=== PATIENT | female | born 1960 | race Caucasian/White ===

== ENCOUNTER 2017-04-05 07:00 | Inpatient (IN) | payer OTHER ==
[~2017-04-05] VITALS: Ht 180.3 cm; Wt 59.0 kg
[~2017-04-05 07:00] MED LIST: ALPRAZOLAM0.5 MG PO
[2017-05-28] MEDS ORDERED: SYNTHROID150 MCG ORAL (14:01)
[2017-05-28] MEDS ORDERED: PAMELOR25 MG ORAL (14:03)
[2017-05-28] MEDS ORDERED: NORCO 10-325 T1 EACH ORAL (14:05)
[2017-05-28] MEDS ORDERED: TRANSDERM-SCOP1.5 MG TD (14:08)
[2017-05-28] MEDS ORDERED: CIPRO250 MG ORAL (14:45)
[2017-05-28] MEDS ORDERED: COMBIPATCH 0.01 EACH TD (14:48)
[2017-05-29] VITALS (16 sets, daily range): BP systolic 100–128; BP diastolic 41–89
[2017-05-29] MEDS ORDERED: Thrombin 5000 units TOPIC ONE (06:56)
[2017-05-29] MEDS ORDERED: Surgicel 4in x 8in TOPIC ONE (06:56)
[2017-05-29] MEDS ORDERED: Vancomycin 1gm inj IVPB ONE ×2 (06:57→07:38)
[2017-05-29] MEDS ORDERED: Bacitracin 50000 Units Vial ONE (06:57)
[2017-05-29] MEDS ORDERED: Sterile Water Irrig 1000ml IRRIG ONE (07:00)
[2017-05-29] MEDS ORDERED: Metoclopramide 10mg/2ml Inj ONE (07:00)
[2017-05-29] MEDS ORDERED: Propofol 1,000mg/ 100ml btl IV ONE (07:00)
[2017-05-29] MEDS ORDERED: fentaNYL 100 mcg/2 mL IV ONE (07:00)
[2017-05-29] MEDS ORDERED: Ketorolac 30mg Inj ONE (07:00)
[2017-05-29] MEDS ORDERED: Vancomycin 1 GM in D5W 275 ML IVPB ONE (07:00)
[2017-05-29] MEDS ORDERED: Morphine Sulfate 10mg/ml Inj ONE (07:00)
[2017-05-29] MEDS ORDERED: LR 1000ml ONE (07:00)
[2017-05-29] MEDS ORDERED: Midazolam 2mg/2ml Inj ONE (07:00)
[2017-05-29] MEDS ORDERED: NS Irrig 1000ml ONE (07:00)
[2017-05-29] MEDS ORDERED: Zemuron 50mg/5ml Inj IV ONE (07:00)
[2017-05-29] MEDS ORDERED: Sodium Chloride 10ml vial INJ ONE (07:00)
[2017-05-29] MEDS ORDERED: Glycopyrrolate 0.2mg/ml 1ml Vial ONE (07:00)
[2017-05-29] MEDS ORDERED: Succinylcholine 20mg/ml 10ml vial ONE (07:00)
--- NOTE | 2017-05-29 07:20 | Pre-Procedure Note/Attestation ---
Pre-Procedure Note/Attestation Complete Prior to Procedure Planned Procedure: not applicable Procedure Narrative: Arthroplasty C56 , Anterior cervical discectomy and fusion Cervical 67 Indications for Procedure Pre-Operative Diagnosis: C56, and C67 herniation Attestation I attest that I discussed the nature of the procedure; its benefits; risks and complications; and alternatives (and the risks and benefits of such alternatives ), prior to the procedure, with the patient (or the patient's legal agency service representative). I attest that, if there was a reasonable possibility of needing a blood transfusion, the patient (or the patient's legal agency service representative) was given the [facility] standardized written summary, pursuant to the [place] Blood Safety Act ([place] Health and Safety Code # 1645, as amended). I attest that I re-evaluated the patient just prior to the surgery and that there has been no change in the patient's H&P, except as documented below: JOSE ROBERTO RICO May 29, 2017 07:20
--- NOTE | 2017-05-29 07:23 | Brief Operative Note ---
Immediate Post Operative Note Operative Note Chief Complaint: neck pain and radiculopathy Pre-op Diagnosis: C56, and C67 herniation Procedure: Arthroplasty C56 , Anterior cervical discectomy and fusion Cervical 67 Post-op Diagnosis: same as pre-op Findings: consistent w/pre-op dx studies Surgeon: Eloina Nascar Racer: Manolo Anesthesia: general Specimen: none Complications: none Implant(s) used?: Yes - Prodisc 5, Nuvasive InterlJOSE ROBERTO Mcgarry May 29, 2017 07:23
[2017-05-29 07:44] LABS: APPEARANCE,URINE CLOUDY; BILIRUBIN, URINE NEGATIVE (NEGATIVE); GLUCOSE, URINE (UA) NEGATIVE (NEGATIVE); KETONES,URINE NEGATIVE (NEGATIVE); LEUKOCYTE ESTERASE ,URINE 1+ (NEGATIVE); NITRITE,URINE NEGATIVE (NEGATIVE); PH,URINE 5 (4.5-8.0); PROTEIN,URINE NEGATIVE (NEGATIVE); UROBILINOGEN,URINE NORMAL MG/DL (0.0-1.0)
[2017-05-29 07:49] LABS: COLOR,URINE YELLOW
[2017-05-29] MEDS ORDERED: LR 1000ml 1,000 ML IVLG SCH (08:04)
--- NOTE | 2017-05-29 08:08 | Anethesia Preoperative Eval ---
Anesthesia Pre-op PMH/ROS General Date of Evaluation: May 29, 2017 Time of Evaluation: 06:55 Anesthesiologist: MK ASA Score: ASA 2 Mallampati Score Class I : Soft palate, uvula, fauces, pillars visible Class II: Soft palate, uvula, fauces visible Class III: Soft palate, base of uvula visible Class IV: Only hard plate visible Mallampati Classification: Class I Surgeon: JACKY Diagnosis: CERVICAL RADICULOPATHY Surgical Procedure: C5-6,7 Anesthesia History: none, PONV Family History: no anesthesia problems Allergies: Coded Allergies: PENICILLINS (Verified Allergy, Intermediate, rash, 05/28/17) Medications: see eMAR Anesthesia Pre-op Phys. Exam Physician Exam Last Vital Signs Date Time Temp Pulse Resp B/P (MAP) Pulse Ox O2 Delivery O2 Flow Rate FiO2 05/29/17 06:17 98.6 68 20 100/66 97 Room Air 98.6 Constitutional: NAD Neurologic: CN 2-12 intact Cardiovascular: RRR Respiratory: CTA Gastrointestinal: S/NT/ND Airway Exam Mallampati Score: Class II MO: full ROM: full Teeth: intact Anesthesia Pre-op A/P Labs Urine Test Test 05/29/17 05:57 Urine HCG, Qualitative Negative Risk Assessment & Plan Plan: GA Status Change Before Surgery: No Pre-Antibiotics Drug: VANCOMYCIN Given Within 1 Hr of Incision: Yes Time Given: 08:00 Manjit Velazquez M.D. May 29, 2017 08:08
--- NOTE | 2017-05-29 08:13 | Immediate Post-Op Evaluation ---
Immediate Post-Op Evalulation Immediate Post-Op Evalulation Procedure: C5-6-7 ACDF Date of Evaluation: May 29, 2017 Time of Evaluation: 11:00 IV Fluids: 1000 Blood Products: 0 Estimated Blood Loss: 50 Urinary Output: 300 Blood Pressure Systolic: 121 Blood Pressure Diastolic: 68 Pulse Rate: 77 Respiratory Rate: 18 O2 Sat by Pulse Oximetry: 99 Temperature (Fahrenheit): 98.7 Pain Score (1-10): 0 Nausea: No Vomiting: No Patient Status: awake, reacts, patent, extubated Hydration Status: adequate Drug: VANCOMYCIN Given Within 1 Hr of Incision: Yes Time Given: 08:00 Manjit Velazquez M.D. May 29, 2017 08:13
--- NOTE | 2017-05-29 08:14 | 48 Hour Post Anesthesia Eval ---
Post Anesthesia Evaluation Procedure: C5-6-7 ACDF Date of Evaluation: May 31, 2017 Time of Evaluation: 09:00 Blood Pressure Systolic: 123 0: 78 Pulse Rate: 77 Respiratory Rate: 20 Temperature (Fahrenheit): 98 O2 Sat by Pulse Oximetry: 99 Airway: patent Nausea: No Vomiting: No Pain Intensity: 0 Hydration Status: adequate Mental Status/LOC: patient returned to baseline Follow-up care needed: ready to discharge Manjit Velazquez M.D. May 29, 2017 08:14
[2017-05-29] MEDS ORDERED: Acetaminophen (Non formulary) 100 ML IV ONE (08:15)
[2017-05-29] MEDS ORDERED: Midazolam 2mg/2ml Inj IVP PRN (08:15)
[2017-05-29] MEDS ORDERED: Ketorolac 30mg Inj IV PRN (08:15)
[2017-05-29] MEDS: Morphine Sulfate 2mg/ml Inj IVP PRN ×3 (11:09→11:43)
[2017-05-29] MEDS: fentaNYL 100 mcg/2 mL IV PRN ×2 (11:32→11:45)
--- NOTE | 2017-05-29 12:07 | Diagnostic Imaging Report ---
Indication: Neck Pain Findings: Since 5 fluoroscopic views of the cervical spine were obtained. Multiple images showing discectomy/corpectomy disc prosthesis placement at C5-6 and anterior fusion screws at C6-7. Total fluoroscopic time 110 seconds. IMPRESSION: Intraoperative imaging
[2017-05-29] MEDS ORDERED: Morphine Sulfate 2mg/ml Inj SUBQ PRN (13:30)
[2017-05-29] MEDS ORDERED: Milk of Magnesia 30ml Ud ORAL PRN (13:30)
[2017-05-29] MEDS ORDERED: Norco 5mg/325mg tab ORAL PRN (13:30)
[2017-05-29] MEDS ORDERED: Morphine Sulfate 4mg/ml Inj SUBQ PRN ×2 (13:30)
[2017-05-29] MEDS ORDERED: HYDROcodone/Acetamin 7.5/325 tab ORAL PRN ×2 (13:30)
[2017-05-29] MEDS ORDERED: Naloxone 0.4mg/ml Inj IVP PRN (14:00)
[2017-05-29] MEDS ORDERED: Chloraseptic Spray 20mL Bottle ORAL PRN (14:00)
[2017-05-29] MEDS: NS w/KCl 20mEq 1,000 ML IV SCH ×2 (14:16→23:49)
--- NOTE | 2017-05-29 15:48 | General Progress Note ---
Assessment/Plan Assessment/Plan C56, and C67 herniation Arthroplasty C56 , Anterior cervical discectomy and fusion Cervical 67 hypothyroidism PLAN 1. incentive spirometry 2. DVT prophylaxis 3. PT evaluation and therapy 4. Hydration 5. Pain management 6. discharge once stable with outpatient follow up Subjective Allergies: Coded Allergies: PENICILLINS (Verified Allergy, Intermediate, rash, 05/28/17) Subjective post op care noted meds reconciled Objective Last 24 Hour Vital Signs Date Time Temp Pulse Resp B/P (MAP) Pulse Ox O2 Delivery O2 Flow Rate FiO2 05/29/17 14:00 98.1 88 17 108/60 90 Nasal Cannula 98.1 05/29/17 13:53 98.3 05/29/17 13:23 98.3 05/29/17 13:00 97.8 18 113/68 97 3.0 97.8 05/29/17 12:40 98.3 70 18 110/61 98 Nasal Cannula 3.0 98.3 05/29/17 12:25 69 20 107/41 98 Nasal Cannula 3.0 05/29/17 12:23 98.3 05/29/17 12:13 98.3 05/29/17 12:10 73 20 105/59 97 Nasal Cannula 3.0 05/29/17 11:55 73 20 110/89 97 Nasal Cannula 3.0 05/29/17 11:53 98.3 05/29/17 11:51 98.3 05/29/17 11:45 98.3 05/29/17 11:43 76 16 113/68 96 Nasal Cannula 3.0 05/29/17 11:43 98.3 05/29/17 11:32 98.3 05/29/17 11:32 73 19 110/68 96 Nasal Cannula 3.0 05/29/17 11:21 98.3 05/29/17 11:20 77 12 122/69 100 Nasal Cannula 3.0 05/29/17 11:09 98.3 05/29/17 11:09 76 11 126/77 100 Simple Mask 6.0 05/29/17 11:00 77 16 126/84 100 Simple Mask 6.0 05/29/17 10:55 75 15 120/89 100 Simple Mask 6.0 05/29/17 10:50 98.3 86 25 128/81 100 Simple Mask 6.0 98.3 05/29/17 08:14 208.4 77 20 99 05/29/17 08:13 209.7 77 18 99 05/29/17 06:17 98.6 68 20 100/66 97 Room Air 98.6 Laboratory Tests 05/29/17 05:47: Urine Color Yellow, Urine Appearance Cloudy, Urine pH 5, Urine Specific Garber 1.020, Urine Protein Negative, Urine Glucose (UA) Negative, Urine Ketones Negative, Urine Occult Blood 1+H, Urine Nitrite Negative, Urine Bilirubin Negative, Urine Urobilinogen Normal, Urine Leukocyte Esterase 1+H, Urine RBC 0-2 , Urine WBC 0-2, Urine Squamous Epithelial Cells ModerateH, Urine Amorphous Sediment ManyH, Urine Bacteria Few 05/29/17 05:57: Urine HCG, Qualitative Negative Height (Feet): 5 Height (Inches): 11.00 Weight (Pounds): 130 Objective WDWN NAD clear breath sounds bilaterally without rhonchi or wheeze [id number] without MRG NABS nontender no HSM no CCE nonfocal DIANA ALEGRIA May 29, 2017 15:48
[2017-05-29] MEDS: Dexamethasone 4mg/ml vial IVP SCH ×2 (17:51→23:52)
[2017-05-29] MEDS: Docusate 100mg cap ORAL SCH (17:53)
[2017-05-29] MEDS: Vancomycin 1 GM in D5W 275 ML IVPB SCH (20:41)
[2017-05-29] MEDS ORDERED: ALPRAZolam 0.25mg tab ORAL SCH (21:00)
--- NOTE | 2017-05-29 21:30 | Operative Note - Dictated ---
DATE OF OPERATION: 05/29/2017 SURGEON: Slim Duvall M.D., orthopedic spine surgeon. CoSurgeon: Javi French M.D. ANESTHESIA: General. PREOPERATIVE DIAGNOSES: 1. Intractable neck pain. 2. Radiculopathy. 3. Herniation, C5-C6.C67 4. Neural foraminal stenosis, C5-C6 C67 5. Stenosis. POSTOPERATIVE DIAGNOSES: 1. Intractable neck pain. 2. Radiculopathy. 3. Herniation, C5-C6 C67 4. Neural foraminal stenosis, C5-C6 C67 5. Stenosis. PROCEDURE PERFORMED: 1. Anterior cervical discectomy and artificial disc replacement of C5-C6 using a Synthes Prodisc C size 5 height and C67 anterior cervical discectomy and fusion nuvasive cervical interlock c sz 6 and osteocell 1cc 2. Use of intraoperative microscope. 3. Motor-evoked potential monitoring. 4. Somatosensory-evoked potential monitoring. 5. Supervision and interpretation of fluoroscopy. ESTIMATED BLOOD LOSS: Less than 100 mL. COMPLICATIONS: None. INDICATIONS FOR SURGERY: This patient is a 56-year-old female who has history of diagnoses as listed above. As a result of this, the patient sustained intractable neck pain, radiculopathy, herniation at C5-C6,67 neural foraminal stenosis at C5-C6, stenosis. We tried a course of conservative management but despite this course, there was still a significant component of persistent, recalcitrant neck pain and arm pain. The MRI demonstrated significant neural foraminal compromise secondary to disc herniations at C5-C6, 67 We had a long discussion with Lynne regarding the risks and benefits of surgery. Our discussion included but was not limited to nonoperative management, chiropractic management, another epidural steroid injection as well as definitive management in the form of surgery. We recommended an anterior cervical discectomy and artificial disc replacement of C5-C6 and C67 anterior cervical discectomy and fusion as final definitive management. We reviewed the risks and benefits of surgery with the patient. Our discussion included a comprehensive review of the clinical issues and the nature of the clinical decision. We reviewed the alternatives, including doing nothing. The patient elected to proceed accordingly with anterior cervical discectomy and artificial disc replacement of C5-C6 and C67 anterior cervical discectomy and fusion. We had a long discussion regarding the risks, alternatives, and benefits of surgery. Our description of the risks included a discussion in person as well as a signed consent which detailed all pertinent risks from the procedure itself. Briefly, our discussion included but was not limited to infection, bleeding, pseudarthrosis, spinal cord injury, neurovascular injury, dural tear, CSF leak, neuropathy, paralysis, permanent weakness/drop foot/drop arm, paresthesias, blindness, palsy, and weakness. The patient understood there may be a need for a revision surgery or additional procedures. Approach-related complications including dysphonia, dysphagia, blindness, permanent vocal cord and neural injury, hematoma, swallowing and breathing difficulty. Medical complications were reviewed including liver, kidney, shock, cardiopulmonary failure, anesthesia complications including , swelling, damage to the musculature, larynx/voice injury or loss, esophagus/throat, trachea, blood vessels and muscles/muscular sprain and lungs/pneumothorax during this surgical procedure; injury to deeper structures may be temporary or permanent. After this review of risks, the patient understood these and elected to proceed. A written and verbal consent was given. We discussed the pros and cons of all the alternatives. We discussed the uncertainties associated with the decision. Afterwards I assessed the patient's understanding and explored their preferences. All questions were answered and no guarantees were given. Medical clearance was obtained prior to surgery. INTRAOPERATIVE FINDINGS: A broad-based disc herniation which was found posterior to a tear/rent in the posterior longitudinal ligament at C5-C6 causing a considerable amount of neural foraminal stenosis with significant encroachment on the neural foramina and spinal cord. A larger broad- based disc herniation which was found posterior to a tear/rent in the posterior longitudinal ligament at C6-C7 causing a considerable amount of neural foraminal stenosis with significant encroachment on the neural foramina and spinal cord. DESCRIPTION OF PROCEDURE: Under the benefit of general endotracheal anesthesia and with the assistance of the entire operative team, the patient was moved from the [facility] onto the operative table in the supine position. The head was secured and carefully positioned appropriately. Bilateral arms were secured with GelPads and foam and all bony prominences were padded. For the bilateral lower extremities, SCD and JOSE hose were placed for DVT prophylaxis. A surgical timeout was called which corroborated our planned procedure of anterior cervical discectomy and artificial disc replacement of C5-C6 and C67 anterior cervical discectomy and fusion. Preoperative antibiotics were administered within 30 minutes of the incision for antibiotic prophylaxis. Using lateral fluoroscopic radiography, the operative levels were delineated. Next the wound was prepped and draped with chlorhexidine and sterile drapes. An incision was based on lateral fluoroscopy and we centered our incision at the C5-C6 interspace and next using a standard Gómez-Munoz anterior-based approach, the incision was taken down through the skin and subcutaneous tissues until the vertebral bodies and their corresponding disc spaces were visualized. A needle was placed into the interspace to confirm placement of the operative interspace and we performed the remainder of procedure under microscopic visualization. Next, using a bipolar and Bovie cautery to ensure meticulous hemostasis, the longus colli was mobilized bilaterally and retractors were placed deep to the longus colli bilaterally to address retraction. Next we turned our attention to the radical anterior discectomy. This was initially performed at C5-C6 first by using a #15 blade scalpel followed by narrow pituitaries and a Microsect 5-B curette was used to denude the endplate of all cartilaginous tissue. Next using a [employer] AM8 drill bit, the vertebral endplates were denuded in a pnyj-wk-pcib and luwzc-ta-seadx fashion, and ultimately the posterior uncinate joints bilaterally and posterior osteophytic lips and margins causing central and lateral impingement were carefully denuded until visualization of the posterior longitudinal ligament was possible. An endplate preparation was performed in the exact same fashion using an intervertebral trials manager, sequential distraction was obtained throughout the disc space. We saw a tear/rent in the PLL and this was carefully mobilized and dissected using a Microsect 1-B curette until we visualized a broad-based disc herniation with compression of the spinal cord as well as neural foramina which was right more than left sided. This neural foraminal compression was carefully resected using a Kerrison-1 and Kerrison-2 rongeurs until complete decompression of the spinal cord was visualized and complete decompression of the neural foramina and nerve root therein as well as the axilla and lateral margin of the nerve root was visualized and subsequently completely decompressed. We next turned our attention towards trialing our implant within the disc space. We initially tried size 5 and the Prodisc cervical spacer fit well in regard to depth and width. This implant was opened and prepared. Next under direct visualization, I confirmed excellent fit in respect to the anterior and posterior vertebral bodies, the uncinate joints and in regard to toggle. Once satisfied with this placement on serial AP and lateral fluoroscopy, I turned my attention towards cutting our reggie. These were cut in the bones using a reciprocating drill and afterwards all free fragments of bone were irrigated. Next FloSeal was placed into the interspace and the implant was inserted using fluoroscopic guidance. Next the Synthes Prodisc C size 5 ADR was then carefully advanced and secured into the intervertebral space under direct visualization and with supervision of AP and lateral fluoroscopic views. SECOND LEVEL: PROCEDURE PERFORMED: Anterior cervical discectomy and fusion of C6-C7, using NuVasive Interlock Cage, size C, a total of three 13 mm screws, with the insertion of allograft Osteocel bone. Next we turned our attention to the radical anterior discectomy. This was initially performed at C6-C7 first by using a #15 blade scalpel followed by narrow pituitaries and a Microsect 5-B curette was used to denude the endplate of all cartilaginous tissue. Next using a [employer] AM8 drill bit, the endplates were denuded in a jxos-pm-xujo and caqta-dw-ycdbl fashion, and ultimately the posterior uncinate joints bilaterally and posterior osteophytic lips and margins causing central and lateral impingement were carefully denuded until visualization of the posterior longitudinal ligament was possible. An endplate preparation was performed in the exact same fashion using an intervertebral trials manager, sequential distraction was obtained throughout the disc space. We saw a tear/rent in the PLL and this was carefully mobilized and dissected using a Microsect 1-B curette until we visualized a broad-based disc herniation with compression of the spinal cord as well as neural foramina which was right more than left sided. This neural foraminal compression was carefully resected using a Kerrison-1 and Kerrison-2 rongeurs until complete decompression of the spinal cord was visualized and complete decompression of the neural foramina and nerve root therein as well as the axilla and lateral margin of the nerve root was visualized and subsequently completely decompressed. The family was notified at one hour intervals throughout the procedure to provide for consistent updates. We next turned our attention towards trialing our implant within the disc space. We initially tried size 5 and afterwards size 6 trial from the [employer] system at each level, which appeared to be appropriate under AP and lateral fluoroscopy as well as in terms of its height, depth, width, and lack of toggle. The PEEK (polyetheretherketone) interbody cages were then both packed with allograft bone from Osteocel and local autograft bone matrix. Next these were then carefully advanced and secured into their intervertebral spaces under direct visualization and with supervision of AP and lateral fluoroscopic views. We next turned our attention towards plating. Plating was performed with [employer] Interlock C plating system. A total of three screws, size 13 mm in length were inserted and confirmed under AP and lateral fluoroscopy and confirmed to be in excellent position. After a finger sweep we confirmed removal of all sponges. The retractor was removed and we next turned our attention to meticulous hemostasis with FloSeal and bipolar cautery. After the sponge and needle count was again found to be correct with our second count, we next turned our attention to closure. The wound was again copiously irrigated with antibiotic-impregnated saline. Closure consisted of 4-0 clear nylon for the platysma, and 6-0 clear nylon for the superficial skin. Final skin closure and dressings consisted of Dermabond. Prior to final closure, a final radiograph was obtained which demonstrated the hardware was intact with excellent position throughout. The patient tolerated the procedure well. The patient was carefully extubated after the conclusion of surgery. We discussed the findings of the surgery with the family upon completion of the case. At this point, the patient was transferred to the spine floor for further observation. Slim Duvall M.D. DR: John JOB#: [id number] CC: REGINALD
[2017-05-30] VITALS: BP 110/60
[2017-05-30 06:00] VITALS: BP 96/54
[2017-05-30] MEDS: Dexamethasone 4mg/ml vial IVP SCH ×2 (06:13→12:58)
[2017-05-30 08:00] VITALS: BP 95/56
--- NOTE | 2017-05-30 08:12 | General Progress Note ---
Assessment/Plan Assessment/Plan C56, and C67 herniation Arthroplasty C56 , Anterior cervical discectomy and fusion Cervical 67 hypothyroidism PLAN 1. incentive spirometry 2. DVT prophylaxis 3. PT evaluation and therapy 4. Hydration 5. Pain management 6. discharge per surgery impression, plan, and exam edited and reviewed in detail care discussed with RN Subjective Allergies: Coded Allergies: PENICILLINS (Verified Allergy, Intermediate, rash, 05/28/17) Subjective post op care noted stable Objective Last 24 Hour Vital Signs Date Time Temp Pulse Resp B/P (MAP) Pulse Ox O2 Delivery O2 Flow Rate FiO2 05/30/17 06:00 98.3 79 17 96/54 94 Nasal Cannula 3.0 98.3 05/30/17 00:00 98.2 81 18 110/60 94 Nasal Cannula 3.0 98.2 05/29/17 20:00 98.1 71 17 100/54 94 Nasal Cannula 3.0 98.1 05/29/17 16:19 98.4 74 18 100/51 95 Nasal Cannula 3.0 98.4 05/29/17 14:00 98.1 88 17 108/60 90 Nasal Cannula 98.1 05/29/17 13:53 98.3 05/29/17 13:23 98.3 05/29/17 13:00 97.8 18 113/68 97 3.0 97.8 05/29/17 12:40 98.3 70 18 110/61 98 Nasal Cannula 3.0 98.3 05/29/17 12:25 69 20 107/41 98 Nasal Cannula 3.0 05/29/17 12:23 98.3 05/29/17 12:13 98.3 05/29/17 12:10 73 20 105/59 97 Nasal Cannula 3.0 05/29/17 11:55 73 20 110/89 97 Nasal Cannula 3.0 05/29/17 11:53 98.3 05/29/17 11:51 98.3 05/29/17 11:45 98.3 05/29/17 11:43 76 16 113/68 96 Nasal Cannula 3.0 05/29/17 11:43 98.3 05/29/17 11:32 98.3 05/29/17 11:32 73 19 110/68 96 Nasal Cannula 3.0 05/29/17 11:21 98.3 3/7/18 11:20 77 12 122/69 100 Nasal Cannula 3.0 05/29/17 11:09 98.3 05/29/17 11:09 76 11 126/77 100 Simple Mask 6.0 05/29/17 11:00 77 16 126/84 100 Simple Mask 6.0 05/29/17 10:55 75 15 120/89 100 Simple Mask 6.0 05/29/17 10:50 98.3 86 25 128/81 100 Simple Mask 6.0 98.3 05/29/17 08:14 208.4 77 20 99 05/29/17 08:13 209.7 77 18 99 Intake and Output 05/29/17 05/30/17 19:00 07:00 Intake Total 1900 ml 1200 ml Output Total 300 ml Balance 1600 ml 1200 ml Intake IV Total 1900 ml 1200 ml Output Urine Total 100 ml Estimated Blood Loss 200 ml # Voids 1 Height (Feet): 5 Height (Inches): 11.00 Weight (Pounds): 130 Objective WDWN NAD clear breath sounds bilaterally without rhonchi or wheeze [id number] without MRG NABS nontender no HSM no CCE nonfocal DIANA ALEGRIA May 30, 2017 08:12
[2017-05-30] MEDS: Docusate 100mg cap ORAL SCH (08:14)
[2017-05-30] MEDS: Vancomycin 1 GM in D5W 275 ML IVPB SCH (08:14)
[2017-05-30] MEDS: NS w/KCl 20mEq 1,000 ML IV SCH (10:34)
[2017-05-30 11:42] VITALS: BP 94/64
--- NOTE | 2017-05-30 12:36 | 48 Hour Post Anesthesia Eval ---
Post Anesthesia Evaluation Procedure: C5-6-7 ACDF Date of Evaluation: May 30, 2017 Time of Evaluation: 10:25 Blood Pressure Systolic: 96 0: 52 Pulse Rate: 74 Respiratory Rate: 20 Temperature (Fahrenheit): 97.5 O2 Sat by Pulse Oximetry: 98 Airway: patent Nausea: No Vomiting: No Pain Intensity: 3 Hydration Status: adequate Cardiopulmonary Status: stable Mental Status/LOC: patient returned to baseline Follow-up Care/Observations: n/a Post-Anesthesia Complications: none Follow-up care needed: N/A SHANNAN WALLACE M.D. May 30, 2017 12:36
[2017-05-30 16:00] VITALS: BP 97/56
[2017-05-30] MEDS ORDERED: SUMAtriptan 100mg tab ORAL PRN (16:00)
[2017-05-30] MEDS ORDERED: SUMAtriptan 50mg tab ORAL PRN (16:00)
[2017-05-30] MEDS ORDERED: Tubing IV Secondary IV ONE (17:36)
--- NOTE | 2017-05-31 10:52 | Discharge Summary ---
Discharge Summary Hospital Course Date of Admission May 29, 2017 at 05:13 Date of Discharge May 30, 2017 at 17:37 Admitting Diagnosis HPI Lynne Love is a 56 year old female who was admitted on May 29, 2017 at 05: 13 for Cervical Herniated Disc Hospital Course [id number] Discharge Discharge Disposition Patient was discharged to Home (01) Discharge Diagnoses: Leonarda Arreola NP May 31, 2017 10:52
--- NOTE | 2017-06-01 01:45 | Discharge Summary 2 SIG ---
DATE OF ADMISSION: 05/29/2017 DATE OF DISCHARGE: 05/30/2017 STUDENT SERVICES COUNSELOR: Adams Cotter M.D. 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 Tried conservative course of management, however, still had significant persistent and recalcitrant neck pain and arm pain. MRI demonstrated significant neural foraminal compromise secondary to disc herniation at C5-C6 and C7. She underwent nonoperative management including chiropractic treatment and epidural injections, however, those treatments failed. She was then admitted on 05/29/2017 and underwent anterior cervical diskectomy and fusion and artificial disk replacement on C5-C6 and C6-C7. Postoperatively, she was admitted for postop surgical care. She was followed by Dr. Cotter. She was given pain management and was continued on IV hydration. She was placed on DVT prophylaxis and was encouraged use of incentive spirometry. She was continued on her home medications. She underwent physical and occupational therapy. She was given postop cervical diet. She complained of headache and was given sumatriptan. She was ambulating well. Vitals were stable. She was eventually discharged home. FINAL DIAGNOSES: 1. 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 2. Neural foraminal stenosis C5-C6 and C6-C7. 3. Status post anterior cervical diskectomy and artificial disk replacement of C5-C6. 4. Status post C6-C7 anterior cervical diskectomy and fusion. (Refer to operative report) DISPOSITION: The patient was discharged home. DISCHARGE MEDICATIONS: Refer to medication list. DISCHARGE INSTRUCTIONS: Follow up as outpatient in a week. Slim Duvall M.D. I have been assigned to dictate discharge summary on this account and I was not involved in the patient's management. Leonarda Arreola N.P. DR: ISSA JOB#: [id number] CC: REGINALD
== END 2017-05-30 17:37 | disposition home or self-care (01) | DRG 473 ==
LOC: SDSOVERFLO 05-29 05:13 → 3E 05-29 13:00
PROC: 01N10ZZ Release Cervical Nerve, Open Approach (ICD-10-PCS; principal; 2017-05-29 07:00)
PROC: 0RR30JZ Replacement of Cervical Vertebral Disc with Synthetic Substitute, Open Approach (ICD-10-PCS; principal; 2017-05-29 07:00)
PROC: 0RT30ZZ Resection of Cervical Vertebral Disc, Open Approach (ICD-10-PCS; principal; 2017-05-29 07:00)
PROC: 0RG10A0 Fusion of Cervical Vertebral Joint with Interbody Fusion Device, Anterior Approach, Anterior Column, Open Approach (ICD-10-PCS; principal; 2017-05-29 07:00)
DX: M50.122 Cervical disc disorder at C5-C6 level with radiculopathy (principal); M48.02 Spinal stenosis, cervical region; M24.28 Disorder of ligament, vertebrae; E03.9 Hypothyroidism, unspecified
CPT/HCPCS: 36415; 72040; 76001; 81001; 81025; 86850; 86900; 86901; 87081; 94003; 94150; J2250; J2405; J2765